=== PATIENT | female | born 2000 ===

== ENCOUNTER 2025-02-17 09:56 | Outpatient (AMB) | payer MEDICAID, SELFPAY ==
[2025-02-17 10:14] VITALS: BP 111/72; PULSE 75; RESP 18; TEMP 36.8; O2SAT 98; BMI 19.0
--- NOTE | 2025-02-17 10:14 | AMB.OBINITIA ---
Vital Signs 02/17/25 10:14 Height 1.65 m Height Method Stated Weight 51.823 kg Weight Measurement Method Standing Scale BMI 19.0 BP 111/72 Blood Pressure Source Automatic Cuff Blood Pressure Location Right Upper Arm Position Sitting Respiration 18 Pulse 75 Pulse Source Monitor Temp 98.2 F Temp Source Temporal Artery Scan Pulse Oximetry (%) 98 Oxygen Delivery Method Room Air Allergies/Home Meds Allergies & Medications Allergies No Known Allergies Allergy (Verified 02/17/25 10:15) Medication Reconciliation No Known Home Medications 02/17/25 [History Confirmed 02/17/25] Intake Visit Data Collection New Patient or Established: Established Patient (seen at [facility] within 3 years) Reason for Visit:: OBI TRANFER Seen by Clinical Staff ONLY (RN/MA): No Shrink Pit Supervisor Required: No Do You Feel Safe at Home: Yes Authorities Contacted: N/A PCP or OBGYN visit in last 3 months: No Hx Now: Yes Are you currently on any form of Control: No Last menstrual period: 12/13/24 Pain Present Currently: No Pain Scale Used: Hernandez-Wolf/Numerical Pain scale:: 0 Smoking Status Smoking Status: Never smoker Immunizations Flu Vaccine in the Last 12 Months: No Flu Vaccine Exclusion Criteria: No Exclusion Criteria Questionnaires Covid-19 Vaccine Questionnaire Has patient been vacinated for Covid-19 Have you been vacinated for Covid-19: No PHQ-9 PHQ-2 Over the last 2 weeks, how often have you been bothered by any of the following problems? 1. Little interest or pleasure in doing things: not at all 2. Feeling down, depressed, or hopeless: not at all Total score: 0 PHQ-9 3. Trouble falling or staying asleep, or sleeping too much: Not at all 4. Feeling tired or having little energy: Not at all 5. Poor appetite or overeating: Not at all 6. Feeling bad about yourself - or that you are a failure or have let yourself or your family down: Not at all 7. Trouble concentrating on things, such as reading the newspaper or watching television: Not at all 8. Moving or speaking so slowly that other people could have noticed? - Or the opposite - being so fidgety or restless that you have been moving around a lot more than usual: not at all 9. Thoughts that you would be better off or of hurting yourself in some way: Not at all Total score: 0 If you checked off any problems, how difficult have these problems made it for you to do your work, take care of things at home, or get along with other people?: not difficult at all Source: Developed by Drs. Iván Drew, Tawana Deleon, Erick Foley and colleagues, with an educational kervin from [employer]. Depression screen completed yes Social History Living Situation History Marital Status: Life Partner Lives With: Significant Other Housing: House Tobacco History Smoking Status: Never smoker Second Hand Smoke Exposure: No Alcohol History Alcohol Intake: Never Domestic Abuse History Do You Feel Safe at Home: Yes History of Present Illness HPI Narrative 25-year-old 1 para 0 for OBI. Last. December 13, 2024. This gives a due date September 19, 2025. Patient had her confirmed at [facility] in [place]. She is here with her partner. They are both happy about the . Patient has a history of ulcerative colitis and she has been hospitalized for the past and also history of anemia no other chronic illnesses. Previous history of valley fever and patient states she has not had any residual effects from that and she does not see infectious control or anything like that. Previous history marijuana use. The last time she had marijuana was in July. And she has a history of drinking 2 cocktails a week and she has not had anything to drink since the denies drug use. Denies surgeries. Last Pap was this year and it was normal. 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 Denies leaking denies contractions. She denies any first trimester discomforts at this time PICKER: Past Medical History Past Medical History: No Hx Neurological Disorders, No Hx Cardiac Disorders, No Hx Cancer, No Hx Blood Disorders, No Hx Renal Disease, No Hx Diabetes Mellitus Type 1 and No Hx Diabetes Mellitus Type 2 OB Initial Visit OB Flowsheet OB Flowsheet Initial Weight: Not Recorded Date <del>?</del> EGA Weight BP Alb Glu CTX Pres Fundal ht FHR Mov Dilation Station Effacement Hx Notes Visit Note 02/17/25 <del>?</del> 9w 3d 51.823 kg 111/72 absent unknown 10 156 absent 25-year-old 1 para 0 for OBI. Denies any signs or symptoms of miscarriage. She denies any first trimester discomforts. Patient has a history of ulcerative colitis. 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 Patient will monitor her diet and triggers for her ulcerative colitis and advise me as needed. Working well ventilated area. Schedule with maternal- medicine for anatomy scan. OB panel with screening today continue prenatals. And we discussed signs and symptoms of SAB and danger signs. Return in 4 weeks OB check Menstrual History Menstrual reliability: approximate (month known) Flow: normal Menstrual regularity: regular Monthly: Yes Age at menarche: 9 On control pills at conception: No OB History : 1 Infection History & Risk Evaluation History of STDs: none Patient or partner has history of Genital Herpes: No Genetic Screening & History Genetic Screening/Teratology Counseling - Includes patient, baby's father, or anyone in either family with: 1. Patient's age 35 years or older as of estimated date of delivery: No 2. Thalassemia (Montenegrin, English, Mediterranean, or Background); MCV less than 80: No 3. Neural Tube Defect (Meningomyelocele, Spina Bifida, or Anencephaly): No 4. Congenital Heart Defect: No 5. Down Syndrome: No 6. Trever-Sachs (Ashkenazi Anglican, Cajun, Namibian Ukrainian): No 7. Ketan Disease (Ashkenazi Anglican): No 8. Familial Dysautonomia (Ashkenazi Anglican): No 9. Sickle Cell Disease or Trait (): No 10. Hemophilia or other blood disorders: No 11. Muscular Dystrophy: No 12. Cystic Fibrosis: No 13. [place]'s Chorea: No 14. Mental Retardation/Autism: No 15. Other inherited genetic or chromosomal disorder: No 16. Maternal Metabolic Disorder (EG,TYPE 1 Diabetes, PKU): No 17. Patient or baby's father had a child with defects not listed above: No 18. Recurrent loss or a stillbirth: No 19. Medications (including supplements, vitamins, herbs or otc drugs)/illicit/recreational drugs/alcohol since last menstrual period: No 20. Any other: No Infection History 1. Live with someone with TB or exposed to TB: No Other (see comments) Source: [employer] Office Procedures OBC Clinic LOC & Office Proc's Nursing/Assessment Patient Status: Initial/New Patient OB Clinic Nursing Assessment: Medication Reconciliation, Update PMH in EMR and Vital Signs OB Clinic Coordination of Care: Complex Care and Chronic Disease 1-5, Education Complex Pt/Fam, Consent,records obtained, informed consent, Lab and Imaging orders and Staff clarify orders Special Needs: Heart tones New Patient Charge New Patient Point Assignment: [id number] New Patient Point Charge: MEDICAL DEVICE Level 4 ([id number]) Assessment & Plan Diagnosis / Problem List (1) Encounter for supervision of high risk in first trimester, antepartum: Status: Acute Plan Review SAB, precautions. OB panel with carrier screen and A1c today. Schedule with [facility] for her anatomy scan. We did NIPT and carrier screen today. Continue prenatals. rtc 4 week Additional Plan Follow Up: 4 Weeks (obc)
== END 2025-02-17 10:42 | disposition home or self-care (01) ==
PROVIDERS: PCP Nurse Practitioner Family; Referring Provider Nurse Practitioner Family; Supervising Provider Advanced Practice Midwife; Visit Provider Advanced Practice Midwife
DX: O09.891 Supervision of other high risk pregnancies, first trimester (principal); O99.611 Diseases of the digestive system complicating pregnancy, first trimester; K51.90 Ulcerative colitis, unspecified, without complications; Z3A.09 9 weeks gestation of pregnancy
CPT/HCPCS: 99204; G0463

== ENCOUNTER 2025-03-18 13:16 | Outpatient (AMB) | payer MEDICAID, SELFPAY ==
[2025-03-18 13:19] VITALS: BP 104/66; PULSE 73; RESP 14; TEMP 36.6; O2SAT 99; BMI 19.8
--- NOTE | 2025-03-18 13:19 | AMB.OBPNC ---
Vital Signs 03/18/25 13:19 Height 1.65 m Height Method Stated Weight 54.091 kg Weight Measurement Method Standing Scale BMI 19.8 BP 104/66 Blood Pressure Source Automatic Cuff Blood Pressure Location Left Upper Arm Position Sitting Respiration 14 Pulse 73 Pulse Source Monitor Temp 97.8 F Temp Source Oral Pulse Oximetry (%) 99 Oxygen Delivery Method Room Air Allergies/Home Meds Allergies & Medications Allergies No Known Allergies Allergy (Verified 03/18/25 13:23) Medication Reconciliation No Known Home Medications 02/17/25 [History Confirmed 03/18/25] Immunizations Immunizations Flu Vaccine in the Last 12 Months: No Flu Vaccine Exclusion Criteria: Refused by Patient Care OB Visit Log OB Flowsheet Initial Weight: Not Recorded Date <del>?</del> EGA Weight BP Alb Glu CTX Pres Fundal ht FHR Mov Dilation Station Effacement Hx Notes Visit Note 02/17/25 <del>?</del> 9w 3d 51.823 kg 111/72 absent unknown 10 156 absent 25-year-old 1 para 0 for OBI. Denies any signs or symptoms of miscarriage. She denies any first trimester discomforts. Patient has a history of ulcerative colitis. 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 Patient will monitor her diet and triggers for her ulcerative colitis and advise me as needed. Working well ventilated area. Schedule with maternal- medicine for anatomy scan. OB panel with screening today continue prenatals. And we discussed signs and symptoms of SAB and danger signs. Return in 4 weeks OB check 03/18/25 <del>?</del> 13w 4d 54.091 kg 104/66 absent unknown 13 140 absent Maternal- medicine appointment for March 25. Denies SAB signs symptoms. No leaking or bleeding. No movement yet Reviewed labs. Keep appointment with [facility] March 25. Discussed SAB precautions. Return in 4 weeks OB check and AFP CARMELO Calculator Estimated Delivery Date Method Current WG Current Estimate 09/19/25 LMP (Certain) 13w 4d Notes Visit Date: 03/18/25 Last Updated by: Olga Nguyen CNM NIPT/carrier screen-, O+,abs-,rpr;;nr, rub imm, hbsag-,hiv-, hc-, GC/CT-, , A1: 5.0, Visit Date: 02/17/25 Last Updated by: Olga Nguyen, CNCorie 25 yo , lmp 12/13/24. EDC: 09/19/25 Office Procedures OBC Clinic LOC & Office Proc's Nursing/Assessment Patient Status: Established Patient OB Clinic Nursing Assessment: Medication Reconciliation, Update PMH in EMR and Vital Signs OB Clinic Coordination of Care: Complex Care and Chronic Disease 1-5, Consent,records obtained, informed consent, Education Simp Pt/Fam, 1 Ins Authorization, Lab and Imaging orders, Results/Orders obtained and Staff clarify orders Special Needs: Heart tones Established Patient Charge Established Patient Point Assignment: 150 Established Patient Point Charge: EP Level 4 (120-155) Assessment & Plan Diagnosis / Problem List (1) Encounter for supervision of high risk in first trimester, antepartum: Status: Acute Plan review sab dulce morales appointment 03/25, AFP next visit,rtc 4 week Additional Plan Follow Up: 4 Weeks (obc)
== END 2025-03-18 14:06 | disposition home or self-care (01) ==
LOC: HODSOBC 13:16
PROVIDERS: PCP Nurse Practitioner Family; Referring Provider Nurse Practitioner Family; Supervising Provider Advanced Practice Midwife; Visit Provider Advanced Practice Midwife
DX: O09.91 Supervision of high risk pregnancy, unspecified, first trimester (principal); Z3A.13 13 weeks gestation of pregnancy
CPT/HCPCS: 99214; G0463